=== PATIENT | male | born 1945 | race Caucasian/White ===

== ENCOUNTER → 2019-06-30 | Outpatient (CLI) | payer OTHER ==
[~2019-06-30] MED LIST: ASPIR 8181 MG PO; CENTRUM SILVER1 EAC2 PO; FISH OIL 1,001000 M2 PO; GLUCOSAMINE HC500 MG PO; LOTREL 10-20 M1 EACH PO; NAPROSYN500 MG PO; NIACIN50 MG PO; VITAMIN D3400 UNI2 PO; ZYRTEC10 M5 PO
== END ==
LOC: HYPER 06:52
DX: L97.312 Non-pressure chronic ulcer of right ankle with fat layer exposed (principal); I87.2 Venous insufficiency (chronic) (peripheral); R60.0 Localized edema; R21 Rash and other nonspecific skin eruption; F32.9 Major depressive disorder, single episode, unspecified; Z79.01 Long term (current) use of anticoagulants; Z87.891 Personal history of nicotine dependence; Z96.651 Presence of right artificial knee joint

== ENCOUNTER → 2019-07-28 | Outpatient (CLI) | payer OTHER | LOC: HYPER 07:10 | DX: L97.312 Non-pressure chronic ulcer of right ankle with fat layer exposed (principal); I87.2 Venous insufficiency (chronic) (peripheral); L84 Corns and callosities; R60.0 Localized edema; R21 Rash and other nonspecific skin eruption; F32.9 Major depressive disorder, single episode, unspecified; Z96.651 Presence of right artificial knee joint; Z79.01 Long term (current) use of anticoagulants; Z87.891 Personal history of nicotine dependence ==